=== PATIENT | female | born 1965 | race Caucasian/White ===

== ENCOUNTER 2024-03-03 03:22 | Inpatient (IN) | payer BC ==
[2024-03-03 03:48] VITALS: BMI 44.5
[2024-03-03] MEDS ORDERED: Ondansetron ODT 4 MG TAB PO PRN (03:56)
[2024-03-03] MEDS ORDERED: Ondansetron PF 4 MG/2 ML Vial IVP PRN (03:56)
[2024-03-03] MEDS ORDERED: Acetaminophen 650 MG Suppository PR PRN (03:56)
[2024-03-03] MEDS ORDERED: traMADol HCl 50 MG TAB PO PRN ×2 (03:56)
[2024-03-03] MEDS ORDERED: Artificial Tear Ophth Sol 15 ML BOT EA EYE PRN (04:00)
[2024-03-03] MEDS: Morphine 4 MG/ML VIAL SLOW IVP PRN (04:36)
[2024-03-03] MEDS ORDERED: Famotidine/PF 20 mg/2ml Vial SLOW IVP SCH (09:00)
[2024-03-03] MEDS: busPIRone HCl 5 MG TAB PO SCH (09:32)
[2024-03-03] MEDS: Furosemide 40 MG TAB PO SCH (09:33)
[2024-03-03] MEDS: Potassium Chloride 10 MEQ TAB PO SCH (09:33)
[2024-03-03] MEDS: Pantoprazole DR 40 MG TAB PO SCH (09:33)
[2024-03-03] MEDS: Loratadine 10 MG TAB PO SCH (09:33)
[2024-03-03] MEDS: Apixaban 5 MG TAB PO SCH (09:33)
[2024-03-03] MEDS: Gabapentin 300 MG CAP PO SCH (09:33)
[2024-03-03] MEDS: Escitalopram Oxalate 20 mg Tablet PO SCH (09:33)
[2024-03-03] MEDS: Fluticasone Propionate Nasal Spray 16 gm Bottle NASAL SCH (09:34)
[2024-03-03] MEDS: Dronedarone HCl 400 MG TAB PO SCH (09:34)
[2024-03-03] MEDS: FLU (Fluarix Triv) TS24-25(6MOS UP)/PF 45 MCG/0.5 ML Syringe IM ONE (09:35)
[2024-03-03] MEDS ORDERED: Magnevist 469MG/ML 20 ML VIAL ONE (10:15)
[2024-03-03] MEDS: Morphine 2 MG/ML VIAL SLOW IVP PRN (12:51)
[2024-03-03] MEDS ORDERED: Guaifenesin DM 100-10/5 ML UDCUP PO PRN (13:00)
[2024-03-03] MEDS: Benzonatate 100 MG CAP PO SCH (15:18)
[2024-03-03] MEDS: HYDROcodone/Acetaminophen 5/325 mg Tablet PO PRN (15:20)
[2024-03-03] MEDS: tiZANidine HCl 4 MG TAB PO SCH (20:17)
[2024-03-04] MEDS: Lorazepam 0.5 MG TAB PO SCH (02:52)
[2024-03-04] MEDS: Acetaminophen 325 MG TAB PO PRN (02:53)
[2024-03-04] MEDS: traMADol HCl 50 MG TAB PO PRN (02:53)
[2024-03-04 05:30] LABS: #Basophils Less than 0.03 10x3/uL (0.0-0.2); %Basophils 0.4 % (0.0-1.0); %Eosinophils 2.5 % (0.0-10.0); %Lymphocytes 42.4 % (21.0-51.0); %Monocytes 9.5 % (0.0-10.0); Hematocrit 31.6 % (36.0-47.0); Hemoglobin 10.1 g/dL (12.0-16.0); Mean Corpuscular Hemoglobin 33.2 pg (27.0-31.0); Mean Corpuscular Volume 103.9 fL (78.0-98.0); Mean Platelet Volume 9.4 fL (7.4-10.4); Platelet Count 202 10x3/uL (130-400); RBC Distribution Width 13.3 % (11.5-14.5); Red Blood Cell (RBC) Count 3.04 mill/uL (4.20-5.40)
[2024-03-04 05:41] LABS: Anion Gap 13 mmol/L (10-20); BUN (Urea Nitrogen) 20 mg/dL (9.8-20.1); Calc. Creatinine Clearance 157 mL/min (70-130); Calcium 8.6 mg/dL (7.8-10.44); Carbon Dioxide 27 mmol/L (22-29); Chloride 103 mmol/L (98-107); Estimated GFR 84; Glucose 111 mg/dL (70-105); Potassium 4.1 mmol/L (3.5-5.1); Sodium 139 mmol/L (136-145)
[2024-03-04] MEDS ORDERED: Lidocaine 4% PF 5 ML AMP NEB SCH (09:45)
[2024-03-04] MEDS: Morphine ER 15 MG TAB PO SCH ×2 (11:47→20:09)
[2024-03-04] MEDS: Methocarbamol 500 MG TAB PO SCH ×2 (11:48→20:10)
[2024-03-04] MEDS: Polyethylene Glycol 3350 17 GM Packet PO SCH (17:17)
[2024-03-04] MEDS: Senokot 8.6 MG TAB PO SCH (17:18)
[2024-03-04] MEDS: QUEtiapine 25 MG TAB PO SCH (20:08)
[2024-03-05 05:42] LABS: #Basophils 0.03 10x3/uL (0.0-0.2); %Basophils 0.8 % (0.0-1.0); %Eosinophils 2.4 % (0.0-10.0); %Lymphocytes 30.9 % (21.0-51.0); %Monocytes 10.5 % (0.0-10.0); %Neutrophils 55.1 % (42.0-75.0); Hematocrit 31.8 % (36.0-47.0); Hemoglobin 10.2 g/dL (12.0-16.0); Mean Corpuscular HGB CONC 32.1 g/dL (32.0-36.0); Mean Corpuscular Hemoglobin 33.3 pg (27.0-31.0); Mean Corpuscular Volume 103.9 fL (78.0-98.0); Mean Platelet Volume 8.9 fL (7.4-10.4); Platelet Count 173 10x3/uL (130-400); RBC Distribution Width 13.3 % (11.5-14.5); Red Blood Cell (RBC) Count 3.06 mill/uL (4.20-5.40)
[2024-03-05 06:03] LABS: Anion Gap 11 mmol/L (10-20); BUN (Urea Nitrogen) 16 mg/dL (9.8-20.1); Calc. Creatinine Clearance 174 mL/min (70-130); Calcium 8.6 mg/dL (7.8-10.44); Carbon Dioxide 29 mmol/L (22-29); Chloride 104 mmol/L (98-107); Estimated GFR 95; Glucose 88 mg/dL (70-105); Sodium 140 mmol/L (136-145)
[2024-03-05] MEDS: Senokot 8.6 MG TAB PO SCH (08:11)
[2024-03-05] MEDS: Enoxaparin 40 MG (0.4 mL) SYRINGE SC SCH (08:13)
[2024-03-05] MEDS: Polyethylene Glycol 3350 17 GM Packet PO SCH (08:13)
[2024-03-05] MEDS: hydrOXYzine 25 MG TAB PO SCH (10:21)
[2024-03-05] MEDS: Bisacodyl 5 MG TAB PO SCH (10:21)
[2024-03-05] MEDS: Morphine ER 15 MG TAB PO SCH ×2 (10:22→20:34)
[2024-03-05] MEDS: Lactulose 20 GM (30 mL) UDCUP PO SCH (10:23)
[2024-03-05] MEDS: Bisacodyl 10 MG SUPP PR SCH (12:25)
[2024-03-05] MEDS: HYDROcodone/Acetaminophen 7.5/325 mg Tablet PO PRN (14:22)
[2024-03-06] MEDS: Morphine 2 MG/ML VIAL SLOW IVP SCH (04:04)
[2024-03-06 05:49] LABS: #Basophils 0.03 10x3/uL (0.0-0.2); %Basophils 0.6 % (0.0-1.0); %Eosinophils 2.4 % (0.0-10.0); %Lymphocytes 31.4 % (21.0-51.0); %Monocytes 9.9 % (0.0-10.0); %Neutrophils 55.3 % (42.0-75.0); Hematocrit 32.3 % (36.0-47.0); Hemoglobin 10.4 g/dL (12.0-16.0); Mean Corpuscular HGB CONC 32.2 g/dL (32.0-36.0); Mean Corpuscular Hemoglobin 33.1 pg (27.0-31.0); Mean Corpuscular Volume 102.9 fL (78.0-98.0); Platelet Count 204 10x3/uL (130-400); RBC Distribution Width 13.2 % (11.5-14.5); Red Blood Cell (RBC) Count 3.14 mill/uL (4.20-5.40)
[2024-03-06 06:11] LABS: Anion Gap 11 mmol/L (10-20); BUN (Urea Nitrogen) 13 mg/dL (9.8-20.1); Calc. Creatinine Clearance 167 mL/min (70-130); Calcium 8.8 mg/dL (7.8-10.44); Carbon Dioxide 30 mmol/L (22-29); Chloride 101 mmol/L (98-107); Estimated GFR 90; Glucose 98 mg/dL (70-105); Potassium 4.2 mmol/L (3.5-5.1); Sodium 138 mmol/L (136-145)
[2024-03-06] MEDS ORDERED: Midazolam HCl 2 mg/2 ml Vial ONE (07:03)
[2024-03-06] MEDS ORDERED: Ondansetron PF 4 MG/2 ML Vial ONE (07:03)
[2024-03-06] MEDS ORDERED: fentaNYL 50 mcg/mL 1 mL Vial ONE ×2 (07:03→10:33)
[2024-03-06] MEDS ORDERED: Dexamethasone 20 MG/5 ML VIAL ONE (07:03)
[2024-03-06] MEDS ORDERED: PROPOFOL 20 ML ONE (07:03)
[2024-03-06] MEDS ORDERED: Rocuronium Bromide 10 MG/ML (10ML VIAL) ONE (07:03)
[2024-03-06] MEDS ORDERED: Lidocaine 1% PF 5 ML VIAL ONE (07:03)
[2024-03-06] MEDS ORDERED: SUCCINYLCHOLINE/SOD CL,ISO/PF 200 MG/10 ML SYRINGE FS ONE (07:11)
[2024-03-06] MEDS ORDERED: Ipratropium/Albuterol 3 ML NEB ONE ×2 (08:28→10:14)
[2024-03-06] MEDS ORDERED: PHENYLEPHRINE-NS 100 MCG/ML 10 ML SYRINGE ONE ×3 (09:31→11:03)
[2024-03-06] MEDS ORDERED: SUGAMMADEX SODIUM 200 MG/2 ML VIAL ONE (09:41)
[2024-03-06] MEDS ORDERED: Esmolol 100 MG/10 ML VIAL ONE (09:48)
[2024-03-06] MEDS ORDERED: Labetalol HCl 100 MG/20 ML VIAL ONE (11:26)
[2024-03-06] MEDS: hydrOXYzine 25 MG TAB PO PRN (21:36)
[2024-03-07] MEDS: Morphine ER 15 MG TAB PO SCH ×3 (03:23→20:35)
[2024-03-07 05:42] LABS: #Basophils Less than 0.03 10x3/uL (0.0-0.2); #Eosinophils Less than 0.03 10x3/uL (0.0-0.7); %Lymphocytes 17.9 % (21.0-51.0); %Monocytes 8.2 % (0.0-10.0); %Neutrophils 73.7 % (42.0-75.0); Hematocrit 30.3 % (36.0-47.0); Hemoglobin 9.8 g/dL (12.0-16.0); Mean Corpuscular HGB CONC 32.3 g/dL (32.0-36.0); Mean Corpuscular Hemoglobin 32.3 pg (27.0-31.0); Mean Platelet Volume 9.3 fL (7.4-10.4); Platelet Count 223 10x3/uL (130-400); RBC Distribution Width 13.1 % (11.5-14.5); Red Blood Cell (RBC) Count 3.03 mill/uL (4.20-5.40)
[2024-03-07 05:59] LABS: Anion Gap 11 mmol/L (10-20); BUN (Urea Nitrogen) 13 mg/dL (9.8-20.1); Calc. Creatinine Clearance 174 mL/min (70-130); Calcium 8.8 mg/dL (7.8-10.44); Carbon Dioxide 30 mmol/L (22-29); Chloride 102 mmol/L (98-107); Estimated GFR 95; Glucose 134 mg/dL (70-105); Potassium 4.2 mmol/L (3.5-5.1); Sodium 139 mmol/L (136-145)
[2024-03-07] MEDS: Lidocaine 4% Patch TD SCH (15:07)
[2024-03-08] MEDS: Transdermal Patch Removal TOP SCH (03:08)
[2024-03-08 07:33] LABS: #Basophils 0.03 10x3/uL (0.0-0.2); %Basophils 0.5 % (0.0-1.0); %Eosinophils 2.2 % (0.0-10.0); %Lymphocytes 30.3 % (21.0-51.0); %Monocytes 8.2 % (0.0-10.0); %Neutrophils 58.6 % (42.0-75.0); Hematocrit 33.2 % (36.0-47.0); Hemoglobin 10.5 g/dL (12.0-16.0); Mean Corpuscular HGB CONC 31.6 g/dL (32.0-36.0); Mean Corpuscular Hemoglobin 33.3 pg (27.0-31.0); Mean Corpuscular Volume 105.4 fL (78.0-98.0); Mean Platelet Volume 8.9 fL (7.4-10.4); Platelet Count 251 10x3/uL (130-400); RBC Distribution Width 13.4 % (11.5-14.5); Red Blood Cell (RBC) Count 3.15 mill/uL (4.20-5.40)
[2024-03-08 07:55] LABS: Anion Gap 12 mmol/L (10-20); BUN (Urea Nitrogen) 14 mg/dL (9.8-20.1); Calc. Creatinine Clearance 155 mL/min (70-130); Calcium 9.2 mg/dL (7.8-10.44); Carbon Dioxide 32 mmol/L (22-29); Chloride 99 mmol/L (98-107); Estimated GFR 82; Glucose 87 mg/dL (70-105); Potassium 4.2 mmol/L (3.5-5.1); Sodium 139 mmol/L (136-145)
[2024-03-08 18:44] LABS: Actual Bicarbonate (HCO3v) 33.4 mEq/L (22-28); Base Excess 5.5 mEq/L (-2.0 to +3.0); Calcium, Ionized (venous) 1.13 mmol/L (1.16-1.32); Chloride (VBG) 97 mmol/L (98-106); Hematocrit-VBG 34 % (36.0-47.0); Hemoglobin (Hb) 11.6 g/dL (11.7-16.0); Potassium (VBG) 4.53 mmol/L (3.70-5.30); Sodium 138 mmol/L (133-146); pH (venous) 7.318 (7.32-7.43)
[2024-03-08] MEDS: Methocarbamol 500 MG TAB PO SCH (22:35)
[2024-03-09 05:30] LABS: Anion Gap 17 mmol/L (10-20); BUN (Urea Nitrogen) 19 mg/dL (9.8-20.1); Calc. Creatinine Clearance 151 mL/min (70-130); Calcium 8.9 mg/dL (7.8-10.44); Carbon Dioxide 23 mmol/L (22-29); Chloride 101 mmol/L (98-107); Estimated GFR 80; Glucose 83 mg/dL (70-105); Potassium 4.7 mmol/L (3.5-5.1); Sodium 136 mmol/L (136-145)
[2024-03-09 06:19] LABS: #Basophils 0.05 10x3/uL (0.0-0.2); %Basophils 0.8 % (0.0-1.0); %Eosinophils 2.7 % (0.0-10.0); %Lymphocytes 37.8 % (21.0-51.0); %Monocytes 12.4 % (0.0-10.0); %Neutrophils 45.7 % (42.0-75.0); Hematocrit 35.5 % (36.0-47.0); Hemoglobin 11.4 g/dL (12.0-16.0); Mean Corpuscular HGB CONC 32.1 g/dL (32.0-36.0); Mean Corpuscular Hemoglobin 32.9 pg (27.0-31.0); Mean Corpuscular Volume 102.3 fL (78.0-98.0); Mean Platelet Volume 9.2 fL (7.4-10.4); Platelet Count 306 10x3/uL (130-400); RBC Distribution Width 13.3 % (11.5-14.5); Red Blood Cell (RBC) Count 3.47 mill/uL (4.20-5.40)
[2024-03-09] MEDS: Ipratropium/Albuterol 3 ML NEB NEB SCH (06:59)
[2024-03-09 10:52] LABS: Actual Bicarbonate (HCO3v) 31.6 mEq/L (22-28); Base Excess 6.4 mEq/L (-2.0 to +3.0); Calcium, Ionized (venous) 1.04 mmol/L (1.16-1.32); Chloride (VBG) 98 mmol/L (98-106); Hematocrit-VBG 36 % (36.0-47.0); Hemoglobin (Hb) 12.2 g/dL (11.7-16.0); Potassium (VBG) 4.51 mmol/L (3.70-5.30); Sodium 137 mmol/L (133-146); pH (venous) 7.439 (7.32-7.43)
[2024-03-09] MEDS: Bisacodyl 5 MG TAB PO SCH ×2 (12:29→12:31)
[2024-03-09] MEDS: Fleet Saline Enema 133 ML BOT FS SCH ×2 (12:30→18:03)
[2024-03-10 05:34] LABS: #Basophils 0.03 10x3/uL (0.0-0.2); %Basophils 0.5 % (0.0-1.0); %Eosinophils 2.5 % (0.0-10.0); %Lymphocytes 37.5 % (21.0-51.0); %Monocytes 12.1 % (0.0-10.0); %Neutrophils 46.7 % (42.0-75.0); Hematocrit 34.1 % (36.0-47.0); Mean Corpuscular HGB CONC 32.3 g/dL (32.0-36.0); Mean Corpuscular Hemoglobin 32.4 pg (27.0-31.0); Mean Corpuscular Volume 100.3 fL (78.0-98.0); Mean Platelet Volume 9.1 fL (7.4-10.4); Platelet Count 321 10x3/uL (130-400); RBC Distribution Width 13.5 % (11.5-14.5)
[2024-03-10 05:41] LABS: Anion Gap 14 mmol/L (10-20); BUN (Urea Nitrogen) 20 mg/dL (9.8-20.1); Calc. Creatinine Clearance 148 mL/min (70-130); Calcium 8.9 mg/dL (7.8-10.44); Carbon Dioxide 30 mmol/L (22-29); Chloride 97 mmol/L (98-107); Estimated GFR 78; Glucose 116 mg/dL (70-105); Potassium 4.3 mmol/L (3.5-5.1); Sodium 137 mmol/L (136-145)
[2024-03-11 04:51] LABS: #Basophils 0.03 10x3/uL (0.0-0.2); %Basophils 0.5 % (0.0-1.0); %Eosinophils 3.9 % (0.0-10.0); %Monocytes 12.9 % (0.0-10.0); %Neutrophils 47.4 % (42.0-75.0); Hematocrit 34.7 % (36.0-47.0); Hemoglobin 11.3 g/dL (12.0-16.0); Mean Corpuscular HGB CONC 32.6 g/dL (32.0-36.0); Mean Corpuscular Hemoglobin 32.6 pg (27.0-31.0); Mean Platelet Volume 8.8 fL (7.4-10.4); Platelet Count 338 10x3/uL (130-400); RBC Distribution Width 13.2 % (11.5-14.5); Red Blood Cell (RBC) Count 3.47 mill/uL (4.20-5.40)
[2024-03-11 04:57] LABS: Anion Gap 16 mmol/L (10-20); BUN (Urea Nitrogen) 17 mg/dL (9.8-20.1); Calc. Creatinine Clearance 167 mL/min (70-130); Carbon Dioxide 29 mmol/L (22-29); Chloride 98 mmol/L (98-107); Estimated GFR 90; Glucose 105 mg/dL (70-105); Potassium 4.5 mmol/L (3.5-5.1); Sodium 138 mmol/L (136-145)
[2024-03-11 05:01] LABS: INR-International Normal Ratio 1.1; PTT 30.8 sec (22.9-36.1); Prothrombin Time 14.4 sec (12.0-14.7)
[2024-03-11] MEDS ORDERED: Sodium Bicarbonate 2.5 MEQ/5 ML SDV ONE (13:33)
[2024-03-11] MEDS ORDERED: fentaNYL 50 mcg/mL 1 mL Vial ONE (13:33)
[2024-03-11] MEDS ORDERED: Lidocaine 1% w/Epinephrine 1:100K 20 ML VIAL ONE (13:33)
[2024-03-11] MEDS ORDERED: Midazolam HCl 2 mg/2 ml Vial ONE (13:33)
[2024-03-11] MEDS ORDERED: Benzonatate 100 MG CAP ONE (14:47)
[2024-03-12 05:22] LABS: %Basophils 0.4 % (0.0-1.0); %Eosinophils 3.5 % (0.0-10.0); %Lymphocytes 30.1 % (21.0-51.0); %Monocytes 14.4 % (0.0-10.0); %Neutrophils 50.9 % (42.0-75.0); Hematocrit 33.1 % (36.0-47.0); Hemoglobin 10.9 g/dL (12.0-16.0); Mean Corpuscular HGB CONC 32.9 g/dL (32.0-36.0); Mean Corpuscular Hemoglobin 32.5 pg (27.0-31.0); Mean Corpuscular Volume 98.8 fL (78.0-98.0); Mean Platelet Volume 8.6 fL (7.4-10.4); Platelet Count 327 10x3/uL (130-400); RBC Distribution Width 13.4 % (11.5-14.5); Red Blood Cell (RBC) Count 3.35 mill/uL (4.20-5.40)
[2024-03-12 05:23] LABS: #Basophils Less than 0.03 10x3/uL (0.0-0.2)
[2024-03-12 05:39] LABS: Anion Gap 16 mmol/L (10-20); BUN (Urea Nitrogen) 12 mg/dL (9.8-20.1); Calc. Creatinine Clearance 157 mL/min (70-130); Calcium 9.1 mg/dL (7.8-10.44); Carbon Dioxide 29 mmol/L (22-29); Chloride 100 mmol/L (98-107); Estimated GFR 84; Glucose 99 mg/dL (70-105); Potassium 4.3 mmol/L (3.5-5.1); Sodium 141 mmol/L (136-145)
[2024-03-12] MEDS: oxyCODONE/Acetaminophen 5 mg/325 mg Tablet PO PRN (19:39)
[2024-03-13] MEDS: oxyCODONE/Acetaminophen 5 mg/325 mg Tablet PO PRN (03:10)
[2024-03-13 05:03] LABS: #Basophils Less than 0.03 10x3/uL (0.0-0.2); %Basophils 0.4 % (0.0-1.0); %Eosinophils 4.8 % (0.0-10.0); %Lymphocytes 33.4 % (21.0-51.0); %Monocytes 15.9 % (0.0-10.0); Hemoglobin 10.1 g/dL (12.0-16.0); Mean Corpuscular HGB CONC 31.6 g/dL (32.0-36.0); Mean Corpuscular Volume 104.6 fL (78.0-98.0); Mean Platelet Volume 8.8 fL (7.4-10.4); Platelet Count 328 10x3/uL (130-400); RBC Distribution Width 13.3 % (11.5-14.5); Red Blood Cell (RBC) Count 3.06 mill/uL (4.20-5.40)
[2024-03-13 05:44] LABS: Anion Gap 15 mmol/L (10-20); BUN (Urea Nitrogen) 11 mg/dL (9.8-20.1); Calc. Creatinine Clearance 165 mL/min (70-130); Calcium 8.6 mg/dL (7.8-10.44); Carbon Dioxide 27 mmol/L (22-29); Chloride 101 mmol/L (98-107); Estimated GFR 89; Glucose 121 mg/dL (70-105); Potassium 3.9 mmol/L (3.5-5.1); Sodium 139 mmol/L (136-145)
[2024-03-13] MEDS: Ketorolac Tromethamine 30 MG (1 mL) VIAL IVP SCH ×2 (12:58→17:26)
[2024-03-14] MEDS: Mineral Oil ENEMA PR SCH (15:01)
[2024-03-18 09:19] VITALS: BMI 48.3
[2024-03-18 15:21] VITALS: BP 113/73; TEMP 98.3
== END 2024-03-18 16:05 | disposition home or self-care (01) | DRG 180 ==
LOC: MSONC 03:22 → INTOOBSV 03:22 → OBSVTOIN 03-04 11:24 → SURG A 03-06 11:58 → MSONC 03-06 13:30
PROVIDERS: ADMIT Family Medicine; ATTEND Family Medicine
PROC: 0BC78ZZ Extirpation of Matter from Left Main Bronchus, Via Natural or Artificial Opening Endoscopic (ICD-10-PCS; principal; 2024-03-06)
PROC: 0BC38ZZ Extirpation of Matter from Right Main Bronchus, Via Natural or Artificial Opening Endoscopic (ICD-10-PCS; 2024-03-06)
PROC: 0WBH3ZX Excision of Retroperitoneum, Percutaneous Approach, Diagnostic (ICD-10-PCS; 2024-03-11)
DX: C34.90 Malignant neoplasm of unspecified part of unspecified bronchus or lung (principal); J96.21 Acute and chronic respiratory failure with hypoxia; I48.20 Chronic atrial fibrillation, unspecified; I50.22 Chronic systolic (congestive) heart failure; C78.7 Secondary malignant neoplasm of liver and intrahepatic bile duct; C79.51 Secondary malignant neoplasm of bone; Z68.42 Body mass index [BMI] 45.0-49.9, adult; I11.0 Hypertensive heart disease with heart failure; Z90.49 Acquired absence of other specified parts of digestive tract; I25.10 Atherosclerotic heart disease of native coronary artery without angina pectoris; Z90.89 Acquired absence of other organs; Z87.891 Personal history of nicotine dependence; G47.00 Insomnia, unspecified; K59.00 Constipation, unspecified; E66.01 Morbid (severe) obesity due to excess calories; Z79.899 Other long term (current) drug therapy; Z86.711 Personal history of pulmonary embolism
CPT/HCPCS: 36415; 36416; 49180; 70553; 71045; 71260; 74018; 74177; 76376; 77012; 77014; 77290; 77334; 78306; 80048; 80053; 82805; 83880; 84484; 85025; 85610; 85730; 88112; 88305; 88333; 88334; 93005; 93010; 94640; 96374; 96375; 96376; A9503; G0378; J1100; J1650; J1885; J2250; J2272; J2405; J2704; J3010; J7620; Q9967